=== PATIENT | male | born 1975 | race African-American/Black ===

== ENCOUNTER 2018-04-25 12:27 | Emergency (ER) | payer OTHER ==
[2018-04-25] MEDS: KETOROLAC 30 MG INJ IM (16:01)
[2018-04-25] MEDS: DEXAMETHASONE 10 MG/ML 1 ML INJ IM (16:01)
[2018-04-25] MEDS: METHOCARBAMOL 750 MG TAB PO (16:09)
== END 2018-04-25 17:59 | disposition left against medical advice (07) ==
LOC: FTE 12:27
DX: M54.5 Low back pain (principal)
CPT/HCPCS: 72100; 96372; 99284-25